=== PATIENT | male | born 1990 | race Asian ===

== ENCOUNTER 2022-10-15 17:19 | Emergency (ER) | payer OTHER, SELFPAY ==
[2022-10-15 17:19] VITALS: BP 132/95; PULSE 85; RESP 18; TEMP 37.2; O2SAT 99; BMI 22.9
--- NOTE | 2022-10-15 17:28 | XR_ITS ---
PROCEDURE INFORMATION: Exam: XR Right Forearm Exam date and time: 10/15/2022 5:49 PM Age: 32 years old Clinical indication: Pain; Lower or forearm; Right; Additional info: Laceration, concern for foreign body TECHNIQUE: Imaging protocol: Radiologic exam of the right forearm. Views: 2 views. COMPARISON: No relevant prior studies available. FINDINGS: Bones/joints: Normal. No fracture or dislocation identified. No evident foreign body. Soft tissues: Normal. IMPRESSION: No acute findings.
--- NOTE | 2022-10-15 18:10 | HMH.EDGENADL ---
Discharge Plan Disposition Patient Disposition: Home, Self-Care Condition: Good Activity Restrictions/Add. Instructions Additional Instructions/Restrictions: stitches can be removed in 7 days. Clinical Impressions Clinical Impression: Laceration Instructions Patient Instructions: DI for Laceration Repair Print Language Print Language: Sami Discharge ED Provider: Jonathan Mota General Adult HPI General Chief complaint: Wound/Laceration Stated complaint: laceration Time Seen by Provider: 10/15/22 18:30 Mode of Arrival: Ambulatory Source of Information: Patient Limitations: No Limitations Description of Symptoms (Recalled from ER Triage Doc. by RN): pt presents to ED with laceration noted to right lateral forearm. History of Present Illness HPI narrative: Patient presents to the emergency department with a laceration to his right forearm after he was attempting to throw a toilet in a garbage bin when it broke. He cut his right forearm. States his last tetanus shot was 5 years ago. Denies any other injuries. Denies any numbness in the hand. Related Data Allergies Allergy/AdvReac Type Severity Reaction Status Date / Time No Known Allergies Allergy Verified 10/15/22 17:24 [facility] Disclaimer: The information contained in this section may have been updated after the patient was seen, as this information can be updated by other users. Social History Smoking Status: Current every day smoker alcohol intake: never current occupational status: employed Travel in the last 8 weeks: None ROS Obtained: Yes All systems reviewed & no additional complaints except as documented Integumentary/Breasts Skin/Breast: Reports other (Laceration) Physical Exam General General appearance: alert and in no apparent distress Head Head exam: atraumatic and normocephalic Eye Eye exam: Present normal appearance, PERRL and EOMI Respiratory Respiratory exam: Present normal lung sounds bilaterally Cardiovascular Cardiovascular exam: Present regular rate and normal rhythm Abdominal Exam Abdominal exam: Present normal bowel sounds Extremities Exam Extremities exam: Present other (1.5 cm laceration which is irregularly shaped by the right distal forearm on the anterior side. Hemostatic) Neurological Exam Neurological exam: Present alert and oriented X3 Psychiatric Psychiatric exam: Present normal affect and normal mood Skin Skin exam: Present warm and dry Medical Decision Making Medical Records Medical records reviewed: Yes I reviewed the patient's medical records. Toribio Inquiry Pt receiving controlled substance: No Vital Signs: 10/15/22 17:19 Temperature 98.9 F Temperature Source Oral Pulse Rate [Left Radial] 85 Respiratory Rate 18 Blood Pressure [Left Arm] 132/95 H Blood Pressure Mean [Left Arm] 107 Blood Pressure Source [Left Arm] Automatic Cuff Blood Pressure Position [Left Arm] Sitting 02 Sat by Pulse Oximetry 99 Orders (Tests/Meds): ED MEDICATIONS Discontinued Medications Generic Name Dose Route Start Last Admin Trade Name Freq PRN Reason Stop Dose Admin Lidocaine/Epinephrine 5 ml 10/15/22 17:28 10/15/22 18:10 Lidocaine 1% W/Epi 1:100,000 20ml Vial IJ 10/15/22 17:29 5 ml ONCE ONE Administration Tetanus/Reduced Diphtheria/Acell Pertussis 0.5 ml 10/15/22 17:24 10/15/22 17:40 Tet/Diphth/Pert-Adult 0.5ml Syringe IM 10/15/22 17:25 0.5 ml .ONCE ONE Administration ORDERS Category Date Time Status Forearm XR right 2 views [XR forearm RT 2V] Stat Exams 10/15/22 17:28 Completed Medical Decision Narrative: Patient was evaluated and x-rays were obtained to rule out foreign body. This was negative. Laceration was repaired and the patient was given a tetanus shot and discharged home Procedures Laceration Laceration 1: Site: upper extremity Side (If applicable): right Size (cm
--- NOTE | 2022-10-15 18:11 | PC.NURSE ---
MD at bedside to suture.
[2022-10-15 18:35] VITALS: BP 126/80; PULSE 89; RESP 17; TEMP 37; O2SAT 99
== END 2022-10-15 18:40 | disposition home or self-care (01) ==
PROVIDERS: Emergency Provider Emergency Medicine
DX: S51.811A Laceration without foreign body of right forearm, initial encounter (principal); W26.8XXA Contact with other sharp object(s), not elsewhere classified, initial encounter
CPT/HCPCS: 12031; 73090; 90471; 90715; 96372; 99283; 99284